=== PATIENT | female | born 1980 | race Caucasian/White ===

== ENCOUNTER 2022-09-11 22:26 | Emergency (ER) | payer BC ==
[2022-09-11] MEDS ORDERED: traMADol HCl 50 MG TAB ONE (22:44)
== END 2022-09-11 23:58 | disposition home or self-care (01) ==
LOC: BURERS 22:26
DX: S82.61XA Displaced fracture of lateral malleolus of right fibula, initial encounter for closed fracture (principal); F17.290 Nicotine dependence, other tobacco product, uncomplicated; X50.9XXA Other and unspecified overexertion or strenuous movements or postures, initial encounter
CPT/HCPCS: 29515